=== PATIENT | female | born 1970 | race Caucasian/White ===

== ENCOUNTER 2020-07-11 12:17 | Emergency (ER) | payer BC ==
[~2020-07-11] VITALS: Ht 157.5 cm; Wt 117.0 kg
[2020-07-11] MEDS ORDERED: SYMBICORT160 MCG/4. INH (12:31)
[2020-07-11] MEDS ORDERED: NEXIUM 24HR20 M2 PO (12:32)
[2020-07-11 13:39] LABS: ABSOLUTE NEUTROPHILS 9.6 thou/uL (1.4-8.2); BASOPHILS 0.7 % (0.0-2.0); EOSINOPHILS 1.9 % (0.0-3.0); HEMATOCRIT 40.4 % (37.0-47.0); HEMOGLOBIN 13.8 gm/dL (12.0-15.0); LYMPHOCYTES 17.4 % (24.0-44.0); MCH 31.8 pg (26.0-34.0); MCHC 34.1 g/dL (28.0-37.0); MCV 93.1 fL (80.0-100.0); MONOCYTES 5.2 % (1.0-8.0); PLATELET COUNT 394 thou/uL (150-400); POLYS 74.8 % (36.0-66.0); RBC 4.34 mil/uL (4.20-5.00); RDW 12.8 % (10.5-14.5); WBC 12.8 thou/uL (4.0-11.0)
[2020-07-11 13:48] LABS: ANION GAP 8 mmol/L (7-16); BUN 14 mg/dL (7-18); CALCIUM 8.8 mg/dL (8.5-10.1); CHLORIDE 103 mmol/L (98-107); CO2 26 mmol/L (21-32); CREATININE 0.7 mg/dL (0.6-1.0); GLUCOSE 95 mg/dL (74-106); SODIUM 137 mmol/L (136-145)
[2020-07-11 13:56] LABS: TROPONIN-I <0.06 ng/mL (<0.06)
[2020-07-11] MEDS ORDERED: PREDNISONE 10 M10 MG PO (14:42)
[2020-07-11] MEDS ORDERED: NORFLEX100 MG PO (14:42)
[2020-07-11 15:09] VITALS: BP 149/83
--- NOTE | 2020-07-12 11:45 | EKG ---
[facility] [place] [address] ELECTROCARDIOGRAM REPORT Name: FRANCISCO YBARRA [id number] Admission: 07/11/20 Attend Phys: Discharge: 07/11/20 Date of : 70 Report #: [id number] THIS REPORT FOR: cc: Corky Norton MD, Neal A. 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
== END 2020-07-11 15:11 | disposition home or self-care (01) ==
LOC: ER 12:17
PROVIDERS: Physician Assistant
DX: R09.1 Pleurisy (principal); I10 Essential (primary) hypertension; Z79.899 Other long term (current) drug therapy; Z91.041 Radiographic dye allergy status

== ENCOUNTER → 2020-07-20 | Outpatient (CLI) | payer BC ==
[~2020-07-20] MED LIST: NEXIUM 24HR20 M2 PO; NORFLEX100 MG PO; PREDNISONE 10 M10 MG PO; SYMBICORT160 MCG/4. INH
== END ==
LOC: LAB 08:44
PROVIDERS: ATTEND Family Medicine
DX: R05 Cough (principal); J02.9 Acute pharyngitis, unspecified; Z20.828 Contact with and (suspected) exposure to other viral communicable diseases

== ENCOUNTER → 2021-04-22 | Outpatient (CLI) | payer BC | LOC: BC 08:56 | PROVIDERS: ATTEND Nurse Practitioner | DX: N64.4 Mastodynia (principal); N63.20 Unspecified lump in the left breast, unspecified quadrant ==

== ENCOUNTER → 2021-10-25 | Outpatient (CLI) | payer BC ==
[~2021-10-25] VITALS: Ht 157.5 cm; Wt 115.7 kg
[~2021-10-25] MED LIST changes: +CYMBALTA30 MG PO; +NEURONTIN300 MG PO
[2021-10-25 12:57] VITALS: BP 147/96
--- NOTE | 2021-10-25 13:24 | NUR ---
Pain Clinic Assessment: 1. History of Osteoarthritis: Not Applicable History of Rheumatoid Arthritis: Not Applicable 2. Height: 5 ft. 2 in. 157.5 cm. Weight: 255.0 lb. oz. 115.668 kg. Patient's BMI: 46.6 3. Vital Signs: BP: 147/96 Pulse: 89 Resp: 16 Temp: 02 Sat: 100 ECG Mon: 4. Pain Intensity: 6 5. Fall Risk: Dizziness: Y Needs help standing or walking: N Fallen in the last 3 months: N Fall risk comments: 6. Patient on Blood Thinner: None 7. History of Hypertension: N 8. Opioid Therapy greater than 6 weeks: Opiate Contract Signed: 9. Risk Assessment Tool Provided: 1 LOW RISK 10. Functional Assessment Tool: 35/ 11. Recreational Drug Use: Never Drug Type: Tobacco Use: Former Smoker Tobacco Type: Amount or Packs/day: How Many Years: Alcohol Use: No Frequency: Quant:
== END ==
LOC: PAIN 10-21 08:34
PROVIDERS: ATTEND Anesthesiology Pain Medicine
DX: M54.59 Other low back pain (principal); M79.7 Fibromyalgia; Z88.8 Allergy status to other drugs, medicaments and biological substances; Z79.899 Other long term (current) drug therapy